=== PATIENT | female | born 1945 | race Caucasian/White ===

== ENCOUNTER 2017-10-04 06:17 | Day surgery (SDC) | payer OTHER ==
[~2017-10-04] VITALS: Ht 170.2 cm; Wt 95.8 kg
[~2017-10-04 06:17] MED LIST: AMIT50 PO; Aspirin EC81 MG; CEPACOL SORE T1 EACH MM; CEPH500 PO; CIPR500 PO; CLIN300 PO; Coumadin7.5 MG PO; DOCU100 PO; ELIQUIS5 MG PO; ENOX100I SC; EXEN10PI SC; FURO20 PO; GABA300 PO; GLIP10 PO; HYDR1TAB94 PO; INSUASPI SC; INSULANPEN SC; Janumet 50-1,01 EACH PO; LEVEMIR FL100 UNIT/1 SQ; LOPE2C PO; LORA.5 PO; MAGOXI400 PO; METF500 PO; METR500 PO; Micro-K10 MEQ; NYST100P TOP; PSEU120ER PO; SACC250C PO; WARF5 PO; WOMEN'S DAILY1 EAC1 PO
[2017-10-04] MEDS ORDERED: ELIQUIS5 MG (07:28)
== END 2017-10-04 08:21 | disposition home or self-care (01) ==
LOC: ORSCSDS 06:17
PROVIDERS: Surgery
PROC: 0DJD8ZZ Inspection of Lower Intestinal Tract, Via Natural or Artificial Opening Endoscopic (ICD-10-PCS; principal; 2017-10-04 07:30)
DX: K62.5 Hemorrhage of anus and rectum (principal); Z85.048 Personal history of other malignant neoplasm of rectum, rectosigmoid junction, and anus; E11.9 Type 2 diabetes mellitus without complications; F41.9 Anxiety disorder, unspecified; Z87.891 Personal history of nicotine dependence; E66.9 Obesity, unspecified; Z68.32 Body mass index [BMI] 32.0-32.9, adult; Z79.01 Long term (current) use of anticoagulants; Z79.84 Long term (current) use of oral hypoglycemic drugs; Z79.4 Long term (current) use of insulin; Z79.899 Other long term (current) drug therapy
CPT/HCPCS: 82947; J0330; J1980; J2405; J7120

== ENCOUNTER → 2017-10-09 | Outpatient (CLI) | payer OTHER ==
[~2017-10-09] MED LIST changes: +ELIQUIS5 MG
[2017-10-11 13:59] LABS: HPV Genotype 16 Not Detected (NOTDET); HPV Genotype 18 Not Detected (NOTDET)
[2017-10-16 14:51] LABS: HPV High Risk Other Not Detected (NOTDET)
== END | disposition home or self-care (01) ==
LOC: OLS 15:06
PROVIDERS: Nurse Practitioner Women's Health
DX: Z12.72 Encounter for screening for malignant neoplasm of vagina (principal); Z91.89 Other specified personal risk factors, not elsewhere classified
CPT/HCPCS: 87624; G0123

== ENCOUNTER 2018-03-10 07:52 | Emergency (ER) | payer OTHER ==
[~2018-03-10] VITALS: Ht 170.2 cm; Wt 101.6 kg
[2018-03-10] MEDS ORDERED: LOPE2C PO (08:34)
[2018-03-10 10:27] LABS: Source, Urine Catheter
[2018-03-10 10:38] LABS: Bilirubin, Urine Neg (Neg); Blood, Urine 5+ (Neg); Glucose Qualitative, Urine 4+ (Neg); Ketones, Urine Neg (Neg); Leukocyte Esterase, Urine Neg (Neg); Nitrite, Urine Neg (Neg); Protein, Urine Neg (Neg); Urobilinogen, Urine NORM (Normal)
[2018-03-10 10:48] LABS: Appearance, Urine Cloudy (Clear); Bacteria Rare /hpf; Color, Urine Other (P-Yellow); Red Blood Cells, Urine TNTC /hpf (0-2); Squamous Epithelial Cells Not Seen /hpf (Few); White Blood Cells, Urine Not Seen /hpf (0-5)
== END 2018-03-10 12:02 | disposition home or self-care (01) ==
LOC: ER 07:52
PROVIDERS: Emergency Medicine
DX: R31.9 Hematuria, unspecified (principal); C21.1 Malignant neoplasm of anal canal; K62.5 Hemorrhage of anus and rectum; R10.9 Unspecified abdominal pain; Z88.0 Allergy status to penicillin; Z88.8 Allergy status to other drugs, medicaments and biological substances; Z91.041 Radiographic dye allergy status; Z88.5 Allergy status to narcotic agent; Z79.899 Other long term (current) drug therapy; Z79.84 Long term (current) use of oral hypoglycemic drugs; Z79.4 Long term (current) use of insulin; E11.9 Type 2 diabetes mellitus without complications; Z87.891 Personal history of nicotine dependence
CPT/HCPCS: 74177; 81001; 99284; Q9967

== ENCOUNTER → 2018-10-17 | Outpatient (CLI) | payer OTHER ==
[~2018-10-17] MED LIST changes: +ESCI10 PO; +Furosemide20 MG PO; +INSULANPEN; +MAGNESIUM OXID400 M1 PO; +POTA10T PO
[2018-10-20 15:07] LABS: HPV 16 Negative (Negative); HPV 18 Negative (Negative); HPV OTHER HR TYPES Negative (Negative)
== END | disposition home or self-care (01) ==
LOC: LAB SHORT 13:28 → LAB 13:28
PROVIDERS: Nurse Practitioner Women's Health
DX: Z12.72 Encounter for screening for malignant neoplasm of vagina (principal); Z91.89 Other specified personal risk factors, not elsewhere classified
CPT/HCPCS: 87624; G0123

== ENCOUNTER → 2019-04-17 | Outpatient (CLI) | payer OTHER ==
[~2019-04-17] MED LIST changes: +Cholestyramine378 GM PO; -INSULANPEN; +LIRA0.6P SC; +Lexapro5 MG PO
[2019-04-20 14:48] LABS: Adenovirus F 40/41 Not Detected (NOT DETECT); Astrovirus Not Detected (NOT DETECT); Campylobacter Sp Not Detected (NOT DETECT); Cryptosporidium Not Detected (NOT DETECT); Cyclospora Cayetanensis Not Detected (NOT DETECT); E. Coli O157 Not Detected (NOT DETECT); Entamoeba Histolytica Not Detected (NOT DETECT); Enteroaggregative E. coli-EAEC Not Detected (NOT DETECT); Enteropathogenic E. coli-EPEC Not Detected (NOT DETECT); Enterotoxigenic E. coli-ETEC Not Detected (NOT DETECT); Giardia Lamblia Not Detected (NOT DETECT); Norovirus GI/GII Not Detected (NOT DETECT); Plesiomonas Shigelloides Not Detected (NOT DETECT); Rotavirus A Not Detected (NOT DETECT); Salmonella Sp Not Detected (NOT DETECT); Sapovirus Not Detected (NOT DETECT); Shiga Toxin-prod E. coli-STEC Not Detected (NOT DETECT); Shigella/Enteroin E. coli-EIEC Not Detected (NOT DETECT); Vibrio Cholerae Not Detected (NOT DETECT); Vibrio Sp Not Detected (NOT DETECT); Yersinia Enterocolitica Not Detected (NOT DETECT)
== END | disposition home or self-care (01) ==
LOC: LAB 15:15 → LAB SHORT 15:15 → LAB FUT 04-16 10:50
PROVIDERS: Internal Medicine
DX: R19.7 Diarrhea, unspecified (principal)
CPT/HCPCS: 0097U

== ENCOUNTER 2019-06-23 07:52 | Day surgery (SDC) | payer OTHER ==
[~2019-06-23] VITALS: Ht 180.3 cm; Wt 100.9 kg
== END 2019-06-23 09:48 | disposition home or self-care (01) ==
LOC: ORSCSDS 07:52
PROVIDERS: Surgery
PROC: 0DJD8ZZ Inspection of Lower Intestinal Tract, Via Natural or Artificial Opening Endoscopic (ICD-10-PCS; principal; 2019-06-23 09:15)
DX: Z85.048 Personal history of other malignant neoplasm of rectum, rectosigmoid junction, and anus (principal); E11.9 Type 2 diabetes mellitus without complications; I82.409 Acute embolism and thrombosis of unspecified deep veins of unspecified lower extremity; M79.7 Fibromyalgia; Z87.891 Personal history of nicotine dependence; E66.9 Obesity, unspecified; Z68.35 Body mass index [BMI] 35.0-35.9, adult; Z79.01 Long term (current) use of anticoagulants; Z79.4 Long term (current) use of insulin; Z79.899 Other long term (current) drug therapy
CPT/HCPCS: 82947; J2704; J7120

== ENCOUNTER 2019-09-19 19:34 | Emergency (ER) | payer OTHER ==
[~2019-09-19] VITALS: Ht 167.6 cm; Wt 98.0 kg
== END 2019-09-19 22:30 | disposition home or self-care (01) ==
LOC: ER 19:34
DX: S00.83XA Contusion of other part of head, initial encounter (principal); S80.01XA Contusion of right knee, initial encounter; E04.1 Nontoxic single thyroid nodule; E11.9 Type 2 diabetes mellitus without complications; Z88.0 Allergy status to penicillin; Z88.6 Allergy status to analgesic agent; Z91.09 Other allergy status, other than to drugs and biological substances; Z88.5 Allergy status to narcotic agent; Z79.899 Other long term (current) drug therapy; Z79.01 Long term (current) use of anticoagulants; Z79.4 Long term (current) use of insulin; Z87.891 Personal history of nicotine dependence; W22.8XXA Striking against or struck by other objects, initial encounter
CPT/HCPCS: 70450; 72125; 73564; 99284-25

== ENCOUNTER → 2020-06-11 | Outpatient (CLI) | payer OTHER ==
[~2020-06-11] MED LIST changes: +VICTOZA 3-0.6 MG/0.1 SC
[2020-06-11 17:45] LABS: BASOPHILS ABSOLUTE AUTO 0.09 K/mm3 (0.00-0.23); BASOPHILS PERCENT AUTO 1 % (0-2); EOSINOPHILS ABSOLUTE AUTO 0.25 K/mm3 (0.00-0.68); EOSINOPHILS PERCENT AUTO 2 % (0-6); Hemoglobin 11.5 g/dL (11.5-16.0); IMMATURE GRAN ABSOLUTE AUTO 0.04 K/mm3 (0.00-0.10); IMMATURE GRAN PERCENT AUTO 0 % (0-1); LYMPHOCYTES ABSOLUTE AUTO 1.39 K/mm3 (0.84-5.20); LYMPHOCYTES PERCENT AUTO 13 % (21-46); MONOCYTES ABSOLUTE AUTO 0.48 K/mm3 (0.16-1.47); MONOCYTES PERCENT AUTO 4 % (4-13); Mean Corpuscular HGB 29.3 pg (26.0-34.0); Mean Corpuscular HGB Conc 31.1 g/dL (31.5-36.5); Mean Corpuscular Volume 94 fL (80-100); Mean Platelet Volume 8.9 fL (9.1-12.4); NEUTROPHILS ABSOLUTE AUTO 8.75 K/mm3 (1.96-9.15); NEUTROPHILS PERCENT AUTO 80 % (41-73); Platelet Count 546 K/mm3 (150-400); RDW Coefficient Variation 13.5 % (11.7-14.2); RDW Standard Deviation 46.9 fL (35.1-46.3); Red Blood Cell Count 3.93 M/mm3 (3.80-5.20)
[2020-06-11 18:09] LABS: Alanine Aminotransfer (ALT/SGP 11 U/L (12-78); Albumin, Blood 3.1 g/dL (3.4-5.0); Albumin/Globulin Ratio 0.6 (0.8-1.8); Alk Phos 110 U/L (50-136); Anion Gap 7 mmol/L (6-16); Aspartate Aminotrans (AST/SGOT 7 U/L (12-37); Bilirubin, Total 0.3 mg/dL (0.1-1.0); Blood Urea Nitrogen 15 mg/dL (8-24); Bun/Creatinine Ratio 22.2 (12.0-20.0); CO2, Blood 26 mmol/L (21-32); Calcium, Blood 9.7 mg/dL (8.5-10.1); Chloride, Blood 107 mmol/L (98-108); Creatinine, Blood 0.68 mg/dL (0.40-1.00); Globulin, Blood 5.4 g/dL (2.2-4.0); Glomerular Filtration Rate >60 (60-); Glucose, Blood 187 mg/dL (70-99); Potassium, Blood 4.4 mmol/L (3.5-5.5); Sodium, Blood 140 mmol/L (136-145); Total Protein, Blood 8.5 g/dL (6.4-8.2)
== END | disposition home or self-care (01) ==
LOC: LAB 17:39 → LAB SHORT 17:39
PROVIDERS: Internal Medicine
DX: E11.40 Type 2 diabetes mellitus with diabetic neuropathy, unspecified (principal)
CPT/HCPCS: 80053; 83036; 84443; 85025

== ENCOUNTER → 2020-06-21 | Outpatient (CLI) | payer OTHER ==
[2020-06-21 18:16] LABS: Free Thyroxine 1.07 ng/dL (0.70-1.60); Thyroid Stimulating Hormone 4.78 uIU/mL (0.360-4.800); Triiodothyronine, Free 1.76 pg/mL (2.18-3.98)
== END | disposition home or self-care (01) ==
LOC: LAB SHORT 16:25 → LAB 16:25
PROVIDERS: Internal Medicine
DX: E03.9 Hypothyroidism, unspecified (principal)
CPT/HCPCS: 84439; 84443; 84481

== ENCOUNTER 2020-08-17 08:27 | Day surgery (SDC) | payer OTHER ==
[~2020-08-17] VITALS: Ht 170.2 cm; Wt 93.1 kg
[~2020-08-17 08:27] MED LIST changes: +BASAGLAR K100 UNIT/1 SC; +Hair, Skin & N1 EACH PO; -Lexapro5 MG PO; +MAGNESIUM GLU27.5 M1 PO; -MAGNESIUM OXID400 M1 PO; +MAGNESIUM OXID400 M2 PO; +METO25 PO; -VICTOZA 3-0.6 MG/0.1 SC; +VICTOZA 3-0.6 MG/0.2 SC; -WOMEN'S DAILY1 EAC1 PO
--- NOTE | 2020-08-17 09:23 | NUR ---
08/17/20 0923 Shirley Lloyd WHEN ASKED PT. IF SHE HAD ANY PAIN, PT. VERBALIZES HER RECTUM. PT. HAS HAD RECENT SURGERY FOR HER RECTUM BEING REMOVED. PT. VERBALIZES NOT REALLY PAIN, FEELS LIKE SOMEONE HIT HER.
== END 2020-08-17 10:45 | disposition home or self-care (01) ==
LOC: ORSCSDS 08:27
PROVIDERS: Internal Medicine Gastroenterology
PROC: 0D758ZZ Dilation of Esophagus, Via Natural or Artificial Opening Endoscopic (ICD-10-PCS; principal; 2020-08-17 09:30)
PROC: 0DB58ZX Excision of Esophagus, Via Natural or Artificial Opening Endoscopic, Diagnostic (ICD-10-PCS; principal; 2020-08-17 09:30)
PROC: 0DB78ZX Excision of Stomach, Pylorus, Via Natural or Artificial Opening Endoscopic, Diagnostic (ICD-10-PCS; principal; 2020-08-17 09:30)
DX: R13.14 Dysphagia, pharyngoesophageal phase (principal); K22.2 Esophageal obstruction; K21.9 Gastro-esophageal reflux disease without esophagitis; K22.0 Achalasia of cardia; K29.70 Gastritis, unspecified, without bleeding; E11.40 Type 2 diabetes mellitus with diabetic neuropathy, unspecified; Z87.891 Personal history of nicotine dependence; Z86.718 Personal history of other venous thrombosis and embolism; Z79.01 Long term (current) use of anticoagulants; Z79.84 Long term (current) use of oral hypoglycemic drugs; Z79.899 Other long term (current) drug therapy; E03.9 Hypothyroidism, unspecified; G47.33 Obstructive sleep apnea (adult) (pediatric); I10 Essential (primary) hypertension; Z79.4 Long term (current) use of insulin
CPT/HCPCS: 82947; 88305; 88312; C1726; J2704; J7120

== ENCOUNTER → 2020-09-27 | Outpatient (CLI) | payer OTHER ==
[2020-09-27 14:06] LABS: BASOPHILS ABSOLUTE AUTO 0.06 K/mm3 (0.00-0.23); BASOPHILS PERCENT AUTO 1 % (0-2); EOSINOPHILS ABSOLUTE AUTO 0.24 K/mm3 (0.00-0.68); EOSINOPHILS PERCENT AUTO 3 % (0-6); Hematocrit 38.9 % (33.0-51.0); Hemoglobin 11.8 g/dL (11.5-16.0); IMMATURE GRAN ABSOLUTE AUTO 0.02 K/mm3 (0.00-0.10); IMMATURE GRAN PERCENT AUTO 0 % (0-1); LYMPHOCYTES ABSOLUTE AUTO 0.82 K/mm3 (0.84-5.20); LYMPHOCYTES PERCENT AUTO 12 % (21-46); MONOCYTES ABSOLUTE AUTO 0.31 K/mm3 (0.16-1.47); MONOCYTES PERCENT AUTO 4 % (4-13); Mean Corpuscular HGB 28.7 pg (26.0-34.0); Mean Corpuscular HGB Conc 30.3 g/dL (31.5-36.5); Mean Corpuscular Volume 95 fL (80-100); Mean Platelet Volume 9.2 fL (9.1-12.4); NEUTROPHILS PERCENT AUTO 79 % (41-73); Platelet Count 363 K/mm3 (150-400); RDW Coefficient Variation 13.3 % (11.7-14.2); RDW Standard Deviation 46.7 fL (35.1-46.3); Red Blood Cell Count 4.11 M/mm3 (3.80-5.20); White Blood Cell Count 7.05 K/mm3 (4.00-11.30)
[2020-09-27 14:19] LABS: Percent Saturation 17.5 % (15.0-50.0)
[2020-09-27 14:29] LABS: Alanine Aminotransfer (ALT/SGP 15 U/L (12-78); Albumin, Blood 3.3 g/dL (3.4-5.0); Albumin/Globulin Ratio 0.8 (0.8-1.8); Alk Phos 84 U/L (50-136); Anion Gap 8 mmol/L (6-16); Aspartate Aminotrans (AST/SGOT 9 U/L (12-37); Bilirubin, Total 0.3 mg/dL (0.1-1.0); Blood Urea Nitrogen 21 mg/dL (8-24); Bun/Creatinine Ratio 29.2 (12.0-20.0); CO2, Blood 23 mmol/L (21-32); Calcium, Blood 9.3 mg/dL (8.5-10.1); Chloride, Blood 104 mmol/L (98-108); Creatinine, Blood 0.72 mg/dL (0.40-1.00); Glomerular Filtration Rate >60 (60-); Glucose, Blood 331 mg/dL (70-99); Potassium, Blood 4.3 mmol/L (3.5-5.5); Sodium, Blood 135 mmol/L (136-145); Total Protein, Blood 7.3 g/dL (6.4-8.2)
== END ==
LOC: LAB 10:45 → LAB SHORT 10:45
PROVIDERS: Internal Medicine Hematology & Oncology
DX: C21.1 Malignant neoplasm of anal canal (principal)
CPT/HCPCS: 80053; 82728; 83540; 83550; 85025

== ENCOUNTER 2021-04-09 12:03 | Emergency (ER) | payer OTHER ==
[~2021-04-09] VITALS: Ht 170.2 cm; Wt 96.6 kg
[2021-04-09 12:52] LABS: BASOPHILS ABSOLUTE AUTO 0.05 K/mm3 (0.00-0.23); BASOPHILS PERCENT AUTO 0 % (0-2); EOSINOPHILS ABSOLUTE AUTO 0.09 K/mm3 (0.00-0.68); EOSINOPHILS PERCENT AUTO 1 % (0-6); Hematocrit 41.1 % (33.0-51.0); Hemoglobin 13.5 g/dL (11.5-16.0); IMMATURE GRAN ABSOLUTE AUTO 0.04 K/mm3 (0.00-0.10); IMMATURE GRAN PERCENT AUTO 0 % (0-1); LYMPHOCYTES ABSOLUTE AUTO 0.74 K/mm3 (0.84-5.20); LYMPHOCYTES PERCENT AUTO 6 % (21-46); MONOCYTES ABSOLUTE AUTO 0.46 K/mm3 (0.16-1.47); MONOCYTES PERCENT AUTO 4 % (4-13); Mean Corpuscular HGB 31.9 pg (26.0-34.0); Mean Corpuscular HGB Conc 32.8 g/dL (31.5-36.5); Mean Corpuscular Volume 97 fL (80-100); Mean Platelet Volume 8.9 fL (9.1-12.4); NEUTROPHILS ABSOLUTE AUTO 10.62 K/mm3 (1.96-9.15); NEUTROPHILS PERCENT AUTO 89 % (41-73); Platelet Count 383 K/mm3 (150-400); RDW Coefficient Variation 12.1 % (11.7-14.2); RDW Standard Deviation 43.1 fL (35.1-46.3); Red Blood Cell Count 4.23 M/mm3 (3.80-5.20)
[2021-04-09 13:11] LABS: Alanine Aminotransfer (ALT/SGP 12 U/L (12-78); Albumin, Blood 3.2 g/dL (3.4-5.0); Albumin/Globulin Ratio 0.7 (0.8-1.8); Alk Phos 102 U/L (50-136); Anion Gap 8 mmol/L (6-16); Aspartate Aminotrans (AST/SGOT 11 U/L (12-37); Bilirubin, Total 0.6 mg/dL (0.1-1.0); Blood Urea Nitrogen 18 mg/dL (8-24); Bun/Creatinine Ratio 23.8 (12.0-20.0); CO2, Blood 24 mmol/L (21-32); Calcium, Blood 9.3 mg/dL (8.5-10.1); Chloride, Blood 102 mmol/L (98-108); Creatinine, Blood 0.76 mg/dL (0.40-1.00); Globulin, Blood 4.5 g/dL (2.2-4.0); Glomerular Filtration Rate >60 (60-); Glucose, Blood 371 mg/dL (70-99); Potassium, Blood 4.2 mmol/L (3.5-5.5); Sodium, Blood 134 mmol/L (136-145); Total Protein, Blood 7.7 g/dL (6.4-8.2)
== END 2021-04-09 15:50 | disposition home or self-care (01) ==
LOC: ER 12:03
PROVIDERS: Emergency Medicine
DX: K92.1 Melena (principal); T45.515A Adverse effect of anticoagulants, initial encounter; E11.9 Type 2 diabetes mellitus without complications; Z79.01 Long term (current) use of anticoagulants; Z79.899 Other long term (current) drug therapy; Z88.0 Allergy status to penicillin; Z91.041 Radiographic dye allergy status; Z88.5 Allergy status to narcotic agent; Z87.891 Personal history of nicotine dependence
CPT/HCPCS: 36415; 80053; 85025; 86850; 86900; 86901; 93005; 93010; 99284-25

== ENCOUNTER 2022-02-20 13:39 | Emergency (ER) | payer OTHER ==
[~2022-02-20] VITALS: Ht 165.1 cm; Wt 108.9 kg
== END 2022-02-20 16:20 | disposition home or self-care (01) ==
LOC: ER 13:39
DX: S00.83XA Contusion of other part of head, initial encounter (principal); S51.001A Unspecified open wound of right elbow, initial encounter; M25.562 Pain in left knee; M25.561 Pain in right knee; W01.198A Fall on same level from slipping, tripping and stumbling with subsequent striking against other object, initial encounter; E11.9 Type 2 diabetes mellitus without complications; Z79.01 Long term (current) use of anticoagulants; Z87.891 Personal history of nicotine dependence; Z79.899 Other long term (current) drug therapy; Z88.0 Allergy status to penicillin; Z88.5 Allergy status to narcotic agent; Z91.041 Radiographic dye allergy status; Z79.84 Long term (current) use of oral hypoglycemic drugs
CPT/HCPCS: 70450; 73070; 73560-LT; 73560-RT; A9270

== ENCOUNTER 2022-06-15 12:15 | Day surgery (SDC) | payer OTHER | END 2022-06-15 23:14 | disposition home or self-care (01) | LOC: WOUND 12:15 | DX: L89.153 Pressure ulcer of sacral region, stage 3 (principal); E11.622 Type 2 diabetes mellitus with other skin ulcer; L89.159 Pressure ulcer of sacral region, unspecified stage; L59.8 Other specified disorders of the skin and subcutaneous tissue related to radiation; Y84.2 Radiological procedure and radiotherapy as the cause of abnormal reaction of the patient, or of later complication, without mention of misadventure at the time of the procedure; Z88.0 Allergy status to penicillin; Z87.891 Personal history of nicotine dependence | CPT/HCPCS: A9270; G0463 ==

== ENCOUNTER 2022-06-29 02:36 | Day surgery (SDC) | payer OTHER | END 2022-06-29 23:27 | disposition home or self-care (01) | LOC: WOUND 02:36 | DX: L89.153 Pressure ulcer of sacral region, stage 3 (principal); L59.8 Other specified disorders of the skin and subcutaneous tissue related to radiation | CPT/HCPCS: A9270 ==

== ENCOUNTER 2022-07-06 00:57 | Day surgery (SDC) | payer OTHER | END 2022-07-06 23:11 | disposition home or self-care (01) | LOC: WOUND 00:57 | DX: L89.153 Pressure ulcer of sacral region, stage 3 (principal); E11.622 Type 2 diabetes mellitus with other skin ulcer; L59.8 Other specified disorders of the skin and subcutaneous tissue related to radiation; L98.499 Non-pressure chronic ulcer of skin of other sites with unspecified severity; Y84.2 Radiological procedure and radiotherapy as the cause of abnormal reaction of the patient, or of later complication, without mention of misadventure at the time of the procedure | CPT/HCPCS: A9270 ==

== ENCOUNTER 2022-07-13 01:48 | Day surgery (SDC) | payer OTHER | END 2022-07-13 23:03 | disposition home or self-care (01) | LOC: WOUND 01:48 | DX: L89.153 Pressure ulcer of sacral region, stage 3 (principal); E11.9 Type 2 diabetes mellitus without complications; L59.8 Other specified disorders of the skin and subcutaneous tissue related to radiation; R15.9 Full incontinence of feces; Y84.2 Radiological procedure and radiotherapy as the cause of abnormal reaction of the patient, or of later complication, without mention of misadventure at the time of the procedure | CPT/HCPCS: A9270 ==

== ENCOUNTER 2022-07-19 03:52 | Day surgery (SDC) | payer OTHER | END 2022-07-19 22:46 | disposition home or self-care (01) | LOC: WOUND 03:52 | DX: L89.153 Pressure ulcer of sacral region, stage 3 (principal); E11.622 Type 2 diabetes mellitus with other skin ulcer; L59.8 Other specified disorders of the skin and subcutaneous tissue related to radiation | CPT/HCPCS: A9270 ==

== ENCOUNTER 2022-08-03 00:32 | Day surgery (SDC) | payer OTHER | END 2022-08-03 22:45 | disposition home or self-care (01) | LOC: WOUND 00:32 | DX: L89.153 Pressure ulcer of sacral region, stage 3 (principal); L59.8 Other specified disorders of the skin and subcutaneous tissue related to radiation | CPT/HCPCS: A9270 ==

== ENCOUNTER → 2022-08-07 | Outpatient (CLI) | payer OTHER | END | disposition home or self-care (01) | DX: E11.69 Type 2 diabetes mellitus with other specified complication (principal); E03.9 Hypothyroidism, unspecified; I10 Essential (primary) hypertension ==

== ENCOUNTER 2022-09-27 01:01 | Day surgery (SDC) | payer OTHER | END 2022-09-27 22:36 | disposition home or self-care (01) | LOC: WOUND 01:01 | DX: L89.153 Pressure ulcer of sacral region, stage 3 (principal); E11.622 Type 2 diabetes mellitus with other skin ulcer; L59.8 Other specified disorders of the skin and subcutaneous tissue related to radiation; Y84.2 Radiological procedure and radiotherapy as the cause of abnormal reaction of the patient, or of later complication, without mention of misadventure at the time of the procedure | CPT/HCPCS: A9270; G0463 ==

== ENCOUNTER 2022-10-04 11:39 | Emergency (ER) | payer OTHER ==
[~2022-10-04] VITALS: Ht 167.6 cm; Wt 90.3 kg
[2022-10-04 12:35] LABS: BASOPHILS ABSOLUTE AUTO 0.05 K/mm3 (0.00-0.23); BASOPHILS PERCENT AUTO 1 % (0-2); EOSINOPHILS ABSOLUTE AUTO 0.13 K/mm3 (0.00-0.68); EOSINOPHILS PERCENT AUTO 2 % (0-6); Hematocrit 38.8 % (33.0-51.0); Hemoglobin 12.7 g/dL (11.5-16.0); IMMATURE GRAN ABSOLUTE AUTO 0.01 K/mm3 (0.00-0.10); IMMATURE GRAN PERCENT AUTO 0 % (0-1); LYMPHOCYTES ABSOLUTE AUTO 1.19 K/mm3 (0.84-5.20); LYMPHOCYTES PERCENT AUTO 17 % (21-46); MONOCYTES ABSOLUTE AUTO 0.29 K/mm3 (0.16-1.47); MONOCYTES PERCENT AUTO 4 % (4-13); Mean Corpuscular HGB 31.1 pg (26.0-34.0); Mean Corpuscular HGB Conc 32.7 g/dL (31.5-36.5); Mean Corpuscular Volume 95 fL (80-100); Mean Platelet Volume 8.9 fL (9.1-12.4); NEUTROPHILS ABSOLUTE AUTO 5.33 K/mm3 (1.96-9.15); NEUTROPHILS PERCENT AUTO 76 % (41-73); Platelet Count 376 K/mm3 (150-400); RDW Coefficient Variation 13.2 % (11.7-14.2); RDW Standard Deviation 46.2 fL (35.1-46.3); Red Blood Cell Count 4.08 M/mm3 (3.80-5.20)
[2022-10-04 13:10] LABS: International Normalized Ratio 0.99; Prothrombin Time Results 10.4 Sec (9.7-11.5)
[2022-10-04 13:35] LABS: Albumin, Blood 3.4 g/dL (3.4-5.0); Albumin/Globulin Ratio 0.9 (0.8-1.8); Bilirubin, Total 0.3 mg/dL (0.1-1.0); Bun/Creatinine Ratio 16.6 (12.0-20.0); Calcium, Blood 9.1 mg/dL (8.5-10.1); Creatinine, Blood 0.96 mg/dL (0.40-1.00); Globulin, Blood 3.9 g/dL (2.2-4.0); Potassium, Blood 4.2 mmol/L (3.5-5.5); Total Protein, Blood 7.3 g/dL (6.4-8.2)
[2022-10-04] MEDS ORDERED: OXYB5 PO (14:24)
[2022-10-04] MEDS ORDERED: BASAGLAR K100 UNIT/3 SC (14:26)
== END 2022-10-04 16:02 | disposition home or self-care (01) ==
LOC: ER 11:39
PROVIDERS: Physician Assistant
DX: R07.9 Chest pain, unspecified (principal); E11.9 Type 2 diabetes mellitus without complications; Z87.891 Personal history of nicotine dependence; Z88.8 Allergy status to other drugs, medicaments and biological substances; Z88.0 Allergy status to penicillin; Z88.5 Allergy status to narcotic agent; Z79.899 Other long term (current) drug therapy; Z79.01 Long term (current) use of anticoagulants; Z79.4 Long term (current) use of insulin
CPT/HCPCS: 36415; 71046; 80053; 83690; 84484; 85025; 85610

== ENCOUNTER 2022-10-11 02:53 | Day surgery (SDC) | payer OTHER ==
[~2022-10-11 02:53] MED LIST changes: +BASAGLAR K100 UNIT/3 SC; +OXYB5 PO
== END 2022-10-11 23:03 | disposition home or self-care (01) ==
LOC: WOUND 02:53
DX: L89.153 Pressure ulcer of sacral region, stage 3 (principal); E11.622 Type 2 diabetes mellitus with other skin ulcer; L59.8 Other specified disorders of the skin and subcutaneous tissue related to radiation; Y84.2 Radiological procedure and radiotherapy as the cause of abnormal reaction of the patient, or of later complication, without mention of misadventure at the time of the procedure
CPT/HCPCS: A9270; G0463

== ENCOUNTER 2022-10-18 03:33 | Day surgery (SDC) | payer OTHER | END 2022-10-18 23:10 | disposition home or self-care (01) | LOC: WOUND 03:33 | DX: L89.153 Pressure ulcer of sacral region, stage 3 (principal); E11.622 Type 2 diabetes mellitus with other skin ulcer; L59.8 Other specified disorders of the skin and subcutaneous tissue related to radiation; Y84.2 Radiological procedure and radiotherapy as the cause of abnormal reaction of the patient, or of later complication, without mention of misadventure at the time of the procedure | CPT/HCPCS: A9270 ==

== ENCOUNTER 2022-10-25 02:27 | Day surgery (SDC) | payer OTHER | END 2022-10-25 22:45 | disposition home or self-care (01) | LOC: WOUND 02:27 | DX: L89.153 Pressure ulcer of sacral region, stage 3 (principal); L59.8 Other specified disorders of the skin and subcutaneous tissue related to radiation; E11.622 Type 2 diabetes mellitus with other skin ulcer; Y84.2 Radiological procedure and radiotherapy as the cause of abnormal reaction of the patient, or of later complication, without mention of misadventure at the time of the procedure | CPT/HCPCS: A9270 ==

== ENCOUNTER 2022-11-01 03:43 | Day surgery (SDC) | payer OTHER | END 2022-11-01 22:37 | disposition home or self-care (01) | LOC: WOUND 03:43 | DX: E11.622 Type 2 diabetes mellitus with other skin ulcer (principal); L89.153 Pressure ulcer of sacral region, stage 3; L59.8 Other specified disorders of the skin and subcutaneous tissue related to radiation; Y84.2 Radiological procedure and radiotherapy as the cause of abnormal reaction of the patient, or of later complication, without mention of misadventure at the time of the procedure | CPT/HCPCS: A9270; G0463 ==

== ENCOUNTER 2022-11-15 01:48 | Day surgery (SDC) | payer OTHER | END 2022-11-15 22:45 | disposition home or self-care (01) | LOC: WOUND 01:48 | DX: L89.153 Pressure ulcer of sacral region, stage 3 (principal); E11.622 Type 2 diabetes mellitus with other skin ulcer; Y84.2 Radiological procedure and radiotherapy as the cause of abnormal reaction of the patient, or of later complication, without mention of misadventure at the time of the procedure; L59.8 Other specified disorders of the skin and subcutaneous tissue related to radiation | CPT/HCPCS: A9270 ==

== ENCOUNTER 2022-11-22 00:46 | Day surgery (SDC) | payer OTHER | END 2022-11-22 22:34 | disposition home or self-care (01) | LOC: WOUND 00:46 | DX: L89.153 Pressure ulcer of sacral region, stage 3 (principal); M87.38 Other secondary osteonecrosis, other site; C21.0 Malignant neoplasm of anus, unspecified; Y84.2 Radiological procedure and radiotherapy as the cause of abnormal reaction of the patient, or of later complication, without mention of misadventure at the time of the procedure | CPT/HCPCS: A9270 ==

== ENCOUNTER 2022-11-29 02:23 | Day surgery (SDC) | payer OTHER | END 2022-11-29 22:34 | disposition home or self-care (01) | LOC: WOUND 02:23 | DX: L89.153 Pressure ulcer of sacral region, stage 3 (principal); E11.622 Type 2 diabetes mellitus with other skin ulcer; Y84.2 Radiological procedure and radiotherapy as the cause of abnormal reaction of the patient, or of later complication, without mention of misadventure at the time of the procedure; L59.8 Other specified disorders of the skin and subcutaneous tissue related to radiation | CPT/HCPCS: G0463 ==

== ENCOUNTER 2022-12-06 02:19 | Day surgery (SDC) | payer OTHER | END 2022-12-06 22:36 | disposition home or self-care (01) | LOC: WOUND 02:19 | DX: L89.153 Pressure ulcer of sacral region, stage 3 (principal); E11.9 Type 2 diabetes mellitus without complications; Y84.2 Radiological procedure and radiotherapy as the cause of abnormal reaction of the patient, or of later complication, without mention of misadventure at the time of the procedure; L59.8 Other specified disorders of the skin and subcutaneous tissue related to radiation | CPT/HCPCS: A9270 ==

== ENCOUNTER 2022-12-20 02:04 | Day surgery (SDC) | payer OTHER | END 2022-12-20 22:46 | disposition home or self-care (01) | LOC: WOUND 02:04 | DX: L89.153 Pressure ulcer of sacral region, stage 3 (principal); E11.9 Type 2 diabetes mellitus without complications; L59.8 Other specified disorders of the skin and subcutaneous tissue related to radiation; Y84.2 Radiological procedure and radiotherapy as the cause of abnormal reaction of the patient, or of later complication, without mention of misadventure at the time of the procedure | CPT/HCPCS: G0463 ==

== ENCOUNTER 2023-01-03 01:03 | Day surgery (SDC) | payer OTHER | END 2023-01-03 22:36 | disposition home or self-care (01) | LOC: WOUND 01:03 | DX: L89.153 Pressure ulcer of sacral region, stage 3 (principal); E11.622 Type 2 diabetes mellitus with other skin ulcer; Y84.2 Radiological procedure and radiotherapy as the cause of abnormal reaction of the patient, or of later complication, without mention of misadventure at the time of the procedure; L59.8 Other specified disorders of the skin and subcutaneous tissue related to radiation | CPT/HCPCS: G0463 ==

== ENCOUNTER 2023-01-17 01:31 | Day surgery (SDC) | payer OTHER | END 2023-01-17 22:49 | disposition home or self-care (01) | LOC: WOUND 01:31 | DX: L89.153 Pressure ulcer of sacral region, stage 3 (principal); E11.622 Type 2 diabetes mellitus with other skin ulcer; Y84.2 Radiological procedure and radiotherapy as the cause of abnormal reaction of the patient, or of later complication, without mention of misadventure at the time of the procedure; L59.8 Other specified disorders of the skin and subcutaneous tissue related to radiation | CPT/HCPCS: A9270; G0463 ==

== ENCOUNTER 2023-01-31 03:48 | Day surgery (SDC) | payer OTHER | END 2023-01-31 22:35 | disposition home or self-care (01) | LOC: WOUND 03:48 | DX: L89.153 Pressure ulcer of sacral region, stage 3 (principal); E11.622 Type 2 diabetes mellitus with other skin ulcer; L59.8 Other specified disorders of the skin and subcutaneous tissue related to radiation; Y84.2 Radiological procedure and radiotherapy as the cause of abnormal reaction of the patient, or of later complication, without mention of misadventure at the time of the procedure | CPT/HCPCS: A9270; G0463 ==

== ENCOUNTER 2023-02-27 03:12 | Day surgery (SDC) | payer OTHER | END 2023-02-27 22:48 | disposition home or self-care (01) | LOC: WOUND 03:12 → EDSTATUS 16:16 → WOUND 16:18 | DX: L89.153 Pressure ulcer of sacral region, stage 3 (principal); E11.622 Type 2 diabetes mellitus with other skin ulcer; L59.8 Other specified disorders of the skin and subcutaneous tissue related to radiation; Y84.2 Radiological procedure and radiotherapy as the cause of abnormal reaction of the patient, or of later complication, without mention of misadventure at the time of the procedure | CPT/HCPCS: G0463 ==

== ENCOUNTER 2023-03-15 06:42 | Day surgery (SDC) | payer OTHER ==
[~2023-03-15] VITALS: Ht 167.6 cm; Wt 91.0 kg
[~2023-03-15 06:42] MED LIST changes: +SULTRIDS PO
[2023-03-15 07:10] VITALS: BP 113/64
[2023-03-15 08:45] VITALS: BP 152/84
--- NOTE | 2023-03-15 08:54 | NUR ---
PT TO RECOVER ROOM, AFTER PROCEDURE PT REPORTED HAVING DIFFICULTY BREATHING, LS CRACKLES T/O SPO2 REQUIREMENT INCREASED, PLACED ON NRB AT 15L, DR. CHANDLER NOTIFIED AND TO BEDSIDE TO EVAL. 20MG IV LASIX ADMIN PER ORDER. AFTER 10 MIN PT. O2 TITRATED DOWN TO OXYMIZER, AND PT REPORTED WOB IMPROVING. AFTER 15 MIN PT. SPO2 TITRATED BACK TO 2LNC.
[2023-03-15 09:00] VITALS: BP 134/78
--- NOTE | 2023-03-15 09:27 | NUR ---
PT SITTING UP IN BED EATING BREAKFAST, UP TO BEDSIDE COMMODE WITH ASSISTANCE TO VOID, AFTER ACTIVITY PT BECAME SOB AGAIN AND REQUIRED APPROX 10 MIN TO RECOVER BACK TO BASELINE. PUREWICK AT BEDSIDE IF PT NEEDS TO VOID AGAIN.
--- NOTE | 2023-03-15 10:15 | NUR ---
TR BAND DELFATED, TEGADERM PLACED OVER SITE, NO SWELLING, NO HEMATOMA. PT EDUCATION PROVIDED. PT CONTINUE WITH ARM BOARD IN PLACE.
--- NOTE | 2023-03-15 12:10 | NUR ---
dishcarge instructions reviewed in detail with pt and s/o Syed. Pt has tr band removed, site remains wnl, no hematoma, no swelling. currently on room air, denies any dyspnea.
== END 2023-03-15 13:03 | disposition home or self-care (01) ==
LOC: MHTC 06:42
DX: I25.10 Atherosclerotic heart disease of native coronary artery without angina pectoris (principal); I70.0 Atherosclerosis of aorta; I50.32 Chronic diastolic (congestive) heart failure; I35.0 Nonrheumatic aortic (valve) stenosis; E78.5 Hyperlipidemia, unspecified; E66.9 Obesity, unspecified; R09.89 Other specified symptoms and signs involving the circulatory and respiratory systems; E11.9 Type 2 diabetes mellitus without complications; Z87.891 Personal history of nicotine dependence; Z79.01 Long term (current) use of anticoagulants; Z88.6 Allergy status to analgesic agent; Z88.0 Allergy status to penicillin; Z88.8 Allergy status to other drugs, medicaments and biological substances
CPT/HCPCS: 76937; 82947; 93454; 99152; 99153; C1769; C1887; C1894; J1200; J1644; J1720; J1940; J2250; J3010; J7030; J7050; Q9967

== ENCOUNTER → 2023-03-21 | Outpatient (CLI) | payer OTHER ==
[2023-03-21 12:52] LABS: BASOPHILS ABSOLUTE AUTO 0.06 K/mm3 (0.00-0.23); BASOPHILS PERCENT AUTO 1 % (0-2); EOSINOPHILS ABSOLUTE AUTO 0.15 K/mm3 (0.00-0.68); EOSINOPHILS PERCENT AUTO 2 % (0-6); Hematocrit 39.2 % (33.0-51.0); Hemoglobin 12.4 g/dL (11.5-16.0); IMMATURE GRAN ABSOLUTE AUTO 0.03 K/mm3 (0.00-0.10); IMMATURE GRAN PERCENT AUTO 0 % (0-1); LYMPHOCYTES PERCENT AUTO 9 % (21-46); MONOCYTES ABSOLUTE AUTO 0.39 K/mm3 (0.16-1.47); MONOCYTES PERCENT AUTO 4 % (4-13); Mean Corpuscular HGB Conc 31.6 g/dL (31.5-36.5); Mean Corpuscular Volume 95 fL (80-100); Mean Platelet Volume 10.1 fL (9.1-12.4); NEUTROPHILS ABSOLUTE AUTO 7.44 K/mm3 (1.96-9.15); NEUTROPHILS PERCENT AUTO 84 % (41-73); Platelet Count 340 K/mm3 (150-400); RDW Coefficient Variation 14.6 % (11.7-14.2); RDW Standard Deviation 50.7 fL (35.1-46.3); Red Blood Cell Count 4.13 M/mm3 (3.80-5.20); White Blood Cell Count 8.87 K/mm3 (4.00-11.30)
[2023-03-21 14:10] LABS: Albumin, Blood 3.3 g/dL (3.4-5.0); Albumin/Globulin Ratio 0.9 (0.8-1.8); Aspartate Aminotrans (AST/SGOT 12 U/L (12-37); Bilirubin, Total 0.4 mg/dL (0.1-1.0); Blood Urea Nitrogen 18 mg/dL (8-24); Chloride, Blood 107 mmol/L (98-108); Globulin, Blood 3.7 g/dL (2.2-4.0); Glucose, Blood 204 mg/dL (70-99); Sodium, Blood 140 mmol/L (136-145)
[2023-03-21 14:21] LABS: Alanine Aminotransfer (ALT/SGP 11 U/L (12-78); Alk Phos 69 U/L (50-136); Anion Gap 9 mmol/L (6-16); Bun/Creatinine Ratio 19.7 (12.0-20.0); CHOL/HDL RATIO 4.1; CO2, Blood 24 mmol/L (21-32); Calcium, Blood 9.4 mg/dL (8.5-10.1); Cholesterol 177 mg/dL (50-200); Creatinine, Blood 0.91 mg/dL (0.40-1.00); Glomerular Filtration Rate 65 (60-); HDL Cholesterol 43 mg/dL (>39); LDL/HDL RATIO 2.3; Low Density Lipoprotein Chol 99 mg/dL (0-110); Triglycerides 175 mg/dL (30-160); Very Low Density Lipoprot Chol 35 mg/dL (6-32)
== END ==
LOC: LAB SHORT 08:15 → LAB 08:15
PROVIDERS: Internal Medicine
DX: E03.9 Hypothyroidism, unspecified (principal); E11.69 Type 2 diabetes mellitus with other specified complication; E78.5 Hyperlipidemia, unspecified; I10 Essential (primary) hypertension
CPT/HCPCS: 80053; 80061; 83036; 83880; 84443; 85025

== ENCOUNTER 2023-03-27 01:57 | Day surgery (SDC) | payer OTHER | END 2023-03-27 22:45 | disposition home or self-care (01) | LOC: WOUND 01:57 | DX: L89.153 Pressure ulcer of sacral region, stage 3 (principal); L59.8 Other specified disorders of the skin and subcutaneous tissue related to radiation; Y84.2 Radiological procedure and radiotherapy as the cause of abnormal reaction of the patient, or of later complication, without mention of misadventure at the time of the procedure; L89.302 Pressure ulcer of unspecified buttock, stage 2; E11.622 Type 2 diabetes mellitus with other skin ulcer | CPT/HCPCS: G0463 ==

== ENCOUNTER 2023-04-03 04:06 | Day surgery (SDC) | payer OTHER | END 2023-04-03 22:45 | disposition home or self-care (01) | LOC: WOUND 04:06 | DX: L89.153 Pressure ulcer of sacral region, stage 3 (principal); E11.622 Type 2 diabetes mellitus with other skin ulcer; Y84.2 Radiological procedure and radiotherapy as the cause of abnormal reaction of the patient, or of later complication, without mention of misadventure at the time of the procedure; L59.8 Other specified disorders of the skin and subcutaneous tissue related to radiation | CPT/HCPCS: 80048; 83880; G0463 ==

== ENCOUNTER 2023-04-10 01:21 | Day surgery (SDC) | payer OTHER | END 2023-04-10 23:10 | disposition home or self-care (01) | LOC: WOUND 01:21 | DX: L89.153 Pressure ulcer of sacral region, stage 3 (principal); E11.622 Type 2 diabetes mellitus with other skin ulcer; Y84.2 Radiological procedure and radiotherapy as the cause of abnormal reaction of the patient, or of later complication, without mention of misadventure at the time of the procedure; L59.8 Other specified disorders of the skin and subcutaneous tissue related to radiation | CPT/HCPCS: G0463 ==

== ENCOUNTER → 2023-04-10 | Outpatient (CLI) | payer OTHER ==
[2023-04-10 12:26] LABS: Bun/Creatinine Ratio 22.7 (12.0-20.0); Creatinine, Blood 0.88 mg/dL (0.40-1.00); Potassium, Blood 3.4 mmol/L (3.5-5.5)
== END | disposition home or self-care (01) ==
LOC: LAB 08:20 → LAB SHORT 08:20
PROVIDERS: Internal Medicine
DX: I48.91 Unspecified atrial fibrillation (principal)
CPT/HCPCS: 80048; 83880

== ENCOUNTER 2023-04-18 02:35 | Day surgery (SDC) | payer OTHER | END 2023-04-18 23:32 | disposition home or self-care (01) | LOC: WOUND 02:35 | DX: L89.153 Pressure ulcer of sacral region, stage 3 (principal); E11.622 Type 2 diabetes mellitus with other skin ulcer; L59.8 Other specified disorders of the skin and subcutaneous tissue related to radiation; Y84.2 Radiological procedure and radiotherapy as the cause of abnormal reaction of the patient, or of later complication, without mention of misadventure at the time of the procedure | CPT/HCPCS: A9270; G0463 ==

== ENCOUNTER 2023-04-24 02:22 | Day surgery (SDC) | payer OTHER | END 2023-04-24 22:43 | disposition home or self-care (01) | LOC: WOUND 02:22 | DX: L89.153 Pressure ulcer of sacral region, stage 3 (principal); M87.38 Other secondary osteonecrosis, other site; E11.622 Type 2 diabetes mellitus with other skin ulcer; Y84.2 Radiological procedure and radiotherapy as the cause of abnormal reaction of the patient, or of later complication, without mention of misadventure at the time of the procedure; L59.8 Other specified disorders of the skin and subcutaneous tissue related to radiation | CPT/HCPCS: G0463 ==

== ENCOUNTER → 2023-04-24 | Outpatient (CLI) | payer OTHER ==
[2023-04-24 15:43] LABS: Bun/Creatinine Ratio 29.9 (12.0-20.0); Calcium, Blood 9.2 mg/dL (8.5-10.1); Creatinine, Blood 1.74 mg/dL (0.40-1.00); Potassium, Blood 5.3 mmol/L (3.5-5.5)
== END | disposition home or self-care (01) ==
LOC: LAB 11:15 → LAB SHORT 11:15
PROVIDERS: Internal Medicine
DX: I48.91 Unspecified atrial fibrillation (principal); I35.0 Nonrheumatic aortic (valve) stenosis
CPT/HCPCS: 80048; 83880

== ENCOUNTER 2023-04-25 09:19 | Inpatient (IN) | payer OTHER ==
[~2023-04-25] VITALS: Ht 167.6 cm; Wt 86.0 kg
[2023-04-25 10:46] LABS: BASOPHILS ABSOLUTE AUTO 0.07 K/mm3 (0.00-0.23); BASOPHILS PERCENT AUTO 0 % (0-2); EOSINOPHILS ABSOLUTE AUTO 0.01 K/mm3 (0.00-0.68); EOSINOPHILS PERCENT AUTO 0 % (0-6); Hemoglobin 12.5 g/dL (11.5-16.0); IMMATURE GRAN ABSOLUTE AUTO 0.09 K/mm3 (0.00-0.10); IMMATURE GRAN PERCENT AUTO 1 % (0-1); LYMPHOCYTES PERCENT AUTO 3 % (21-46); MONOCYTES ABSOLUTE AUTO 0.72 K/mm3 (0.16-1.47); MONOCYTES PERCENT AUTO 5 % (4-13); Mean Corpuscular HGB Conc 30.5 g/dL (31.5-36.5); Mean Corpuscular Volume 99 fL (80-100); Mean Platelet Volume 10.1 fL (9.1-12.4); NEUTROPHILS ABSOLUTE AUTO 14.52 K/mm3 (1.96-9.15); NEUTROPHILS PERCENT AUTO 92 % (41-73); Platelet Count 271 K/mm3 (150-400); RDW Coefficient Variation 13.6 % (11.7-14.2); RDW Standard Deviation 48.9 fL (35.1-46.3); Red Blood Cell Count 4.16 M/mm3 (3.80-5.20); White Blood Cell Count 15.81 K/mm3 (4.00-11.30)
[2023-04-25 11:01] LABS: Bun/Creatinine Ratio 28.7 (12.0-20.0); Calcium, Blood 9.2 mg/dL (8.5-10.1); Creatinine, Blood 1.5 mg/dL (0.40-1.00); Potassium, Blood 5.3 mmol/L (3.5-5.5)
[2023-04-25 11:52] LABS: Base Excess Venous -6.4 mmol/L; Bicarbonate Venous 19.9 mmol/L (24.0-30.0); PCO2 Venous 33.1 mmHg (38-42); pH Blood Venous 7.37 (7.34-7.37)
[2023-04-25 12:17] LABS: Source, Urine Clean Catch
[2023-04-25 12:34] LABS: Appearance, Urine Cloudy (Clear); Bilirubin, Urine Neg (Neg); Blood, Urine 4+ (Neg); Color, Urine Yellow (P-Yellow); Glucose Qualitative, Urine 4+ (Neg); Ketones, Urine 2+ (Neg); Leukocyte Esterase, Urine 3+ (Neg); Nitrite, Urine Neg (Neg); Protein, Urine 3+ (Neg); Urobilinogen, Urine NORM (Normal)
[2023-04-25 13:18] LABS: Bacteria Many /hpf; Red Blood Cells, Urine TNTC /hpf (0-2); Squamous Epithelial Cells Rare /hpf (Few); White Blood Cells, Urine TNTC /hpf (0-5)
[2023-04-25 16:18] VITALS: BP 116/80
[2023-04-25 20:25] VITALS: BP 105/74
[2023-04-25 23:03] VITALS: BP 100/76
[2023-04-26 03:49] VITALS: BP 97/71
[2023-04-26 04:19] LABS: Hematocrit 34.1 % (33.0-51.0); Hemoglobin 10.8 g/dL (11.5-16.0); Mean Corpuscular HGB 29.3 pg (26.0-34.0); Mean Corpuscular HGB Conc 31.7 g/dL (31.5-36.5); Mean Platelet Volume 10.1 fL (9.1-12.4); Platelet Count 335 K/mm3 (150-400); RDW Standard Deviation 46.5 fL (35.1-46.3); Red Blood Cell Count 3.68 M/mm3 (3.80-5.20)
[2023-04-26 04:24] LABS: Mean Corpuscular Volume 93 fL (80-100)
[2023-04-26 04:46] LABS: BAND PERCENT MAN 14 % (0-8); BASOPHILS PERCENT MAN 0 % (0-2); EOSINOPHILS PERCENT MAN 0 % (0-6); LYMPHOCYTES ABSOLUTE MAN 0.41 K/mm3 (0.84-5.20); LYMPHOCYTES PERCENT MAN 2 % (21-46); MONOCYTES ABSOLUTE MAN 1.03 K/mm3 (0.16-1.47); MONOCYTES PERCENT MAN 5 % (4-13); NEUTROPHILS ABSOLUTE MAN 19.15 K/mm3 (1.96-9.15); SEG NEUTROPHILS PERCENT MAN 79 % (41-73); TOTAL CELLS COUNTED 100
--- NOTE | 2023-04-26 04:54 | NUR ---
SHIFT SUMMARY NO ACUTE CHANGES THIS SHIFT. AXO4. VSS. SWELLING REMAINS UNCHANGED TO R THROAT. BREATHING REMAINS WITHOUT STRIDOR, TIGHTNESS, WHEEZING, OR ANY OTHER S/SX RESP DISTRESS. PAIN CONTINUES, MEDS PER EMAR. PT NPO UNTIL SPEECH EVAL TODAY. PICTURES TAKEN OF SACRAL WOUND FOR CHART, WOUND CLEANSED, MEPILEX REPLACED. CBG ELEVATED AT BEGINNING OF SHIFT, LONG ACTING INSULIN ADMINISTERED, PT NPO, AWAITING AM LABS TO DETERMINE IF MORE INSULIN WILL NEED TO BE GIVEN. COLOSTOMY PATENT. [employer] SYSTEM PATENT, ALL EQUIPMENT CHANGED OUT. BED ALARM ON. CALL LIGHT WITHIN REACH.
[2023-04-26 06:37] LABS: Bun/Creatinine Ratio 29.5 (12.0-20.0); Calcium, Blood 8.7 mg/dL (8.5-10.1); Creatinine, Blood 1.46 mg/dL (0.40-1.00); Potassium, Blood 4.8 mmol/L (3.5-5.5)
[2023-04-26 08:33] VITALS: BP 98/69
[2023-04-26 11:05] VITALS: BP 96/72
--- NOTE | 2023-04-26 13:40 | NUR ---
"Spiritual Care Attempt | Pt. request Pt. is resting in her bed but responded when I entered the room. The Pt. verbalized gratitude for the spiritual care visit be requested this lead manufacturing engineering tech return at a different time. Pt. displayed evidence of somnolence. Pt. again graciously verbalized gratitude for the spiritual care visit. Will remain available to the Pt."
[2023-04-26 15:21] VITALS: BP 96/66
[2023-04-26 15:31] LABS: Bun/Creatinine Ratio 31.1 (12.0-20.0); Creatinine, Blood 1.48 mg/dL (0.40-1.00); Potassium, Blood 5.1 mmol/L (3.5-5.5)
--- NOTE | 2023-04-26 17:13 | NUR ---
shift summary No acute changes this shift. pt a&ox4. sp02>90% on ra. telemetry shows sinus tach, mostly 110's. purwik to lis. no bm this shift. pt c/o of mouth pain, medicated per emar. c/o of neuropathic foot pain, gabapentin given per emar. speech in room to eval this am, puree diet, meds in applesauce. Hygenist in room to assess this am. Lab called w/ positive blood cultures, pharmacy and md notified. daughter in room this shift. Partner in room this shift. partner this evening brought home med rec in, med rec completed. abx infused per emar. repositioned q2h. call light in reach.
[2023-04-26 20:00] VITALS: BP 90/67
[2023-04-27] VITALS: BP 92/65
[2023-04-27 03:53] LABS: Hematocrit 32.9 % (33.0-51.0); Hemoglobin 10.7 g/dL (11.5-16.0); Mean Corpuscular HGB 30.2 pg (26.0-34.0); Mean Corpuscular HGB Conc 32.5 g/dL (31.5-36.5); Mean Corpuscular Volume 93 fL (80-100); Mean Platelet Volume 10.2 fL (9.1-12.4); Platelet Count 316 K/mm3 (150-400); RDW Coefficient Variation 14.3 % (11.7-14.2); RDW Standard Deviation 48.6 fL (35.1-46.3); Red Blood Cell Count 3.54 M/mm3 (3.80-5.20); White Blood Cell Count 21.14 K/mm3 (4.00-11.30)
[2023-04-27 04:00] VITALS: BP 92/67
[2023-04-27 04:36] LABS: Albumin, Blood 2.8 g/dL (3.4-5.0); Albumin/Globulin Ratio 0.7 (0.8-1.8); Bilirubin, Total 0.3 mg/dL (0.1-1.0); Bun/Creatinine Ratio 33.1 (12.0-20.0); Calcium, Blood 8.7 mg/dL (8.5-10.1); Creatinine, Blood 1.51 mg/dL (0.40-1.00); Globulin, Blood 3.8 g/dL (2.2-4.0); Potassium, Blood 5.1 mmol/L (3.5-5.5); Total Protein, Blood 6.6 g/dL (6.4-8.2)
[2023-04-27 05:29] LABS: BAND PERCENT MAN 2 % (0-8); BASOPHILS PERCENT MAN 0 % (0-2); EOSINOPHILS PERCENT MAN 0 % (0-6); LYMPHOCYTES % ATYPICAL MANUAL 2 % (0-0); LYMPHOCYTES ABSOLUTE MAN 1.26 K/mm3 (0.84-5.20); LYMPHOCYTES PERCENT MAN 4 % (21-46); MONOCYTES PERCENT MAN 0 % (4-13); NEUTROPHILS ABSOLUTE MAN 19.87 K/mm3 (1.96-9.15); SEG NEUTROPHILS PERCENT MAN 92 % (41-73); TOTAL CELLS COUNTED 100
--- NOTE | 2023-04-27 05:46 | NUR ---
SHIFT SUMMARY PT A&O X4. PT SLEPT WELL, REPORTS FEELING "TIRED". VS; SBP 90 - 92, MAP < 65, SINUS TACH W/HR IN 100'S - 115. OF NOTE PT DID HAVE HR INCREASE TO 150 BUT DID NOT SUSTAIN, PT ALSO HAD 6 BEAT RUN OF VTACH PER GRINDER SET UP OPERATOR. PT DENIES SX. PT AFEBRILE DURING SHIFT. SPO2 92 - 96% ON RA. PT DENIES CP OR PRESSURE. DENIES SOB. PT DENIES DIZZINESS OR LIGHTHEADNESS. PT DOES REPORT PAIN IN FACE/JAW D/T INFECTION. PT MEDICATED PER EMAR X1. PW IN PLACE; 500 MLS OUT THIS SHIFT. COLOSTOMY W/LITTLE OUTPUT, GAS NOTED, PT MANAGES INDEPENDENTLY. PT REPOSITIONED Q2 OR PRN. WILL UPDATE ONCOMING RN.
[2023-04-27 07:28] VITALS: BP 96/64
[2023-04-27 15:54] VITALS: BP 91/67
--- NOTE | 2023-04-27 18:32 | NUR ---
ASSUMED CARE AT 1700 REPORT RECEIVED FROM CROW REED. NO ACUTE CHANGE/EVENTS SINCE TRANSFER OF CARE. WILL REPORT TO ONCOMING SHIFT
[2023-04-27 20:04] VITALS: BP 94/67
[2023-04-28 04:03] VITALS: BP 107/71
[2023-04-28 04:09] LABS: BASOPHILS ABSOLUTE AUTO 0.03 K/mm3 (0.00-0.23); BASOPHILS PERCENT AUTO 0 % (0-2); EOSINOPHILS PERCENT AUTO 0 % (0-6); Hematocrit 34.4 % (33.0-51.0); Hemoglobin 11.5 g/dL (11.5-16.0); IMMATURE GRAN ABSOLUTE AUTO 0.24 K/mm3 (0.00-0.10); IMMATURE GRAN PERCENT AUTO 1 % (0-1); LYMPHOCYTES ABSOLUTE AUTO 0.56 K/mm3 (0.84-5.20); LYMPHOCYTES PERCENT AUTO 3 % (21-46); MONOCYTES ABSOLUTE AUTO 0.44 K/mm3 (0.16-1.47); MONOCYTES PERCENT AUTO 2 % (4-13); Mean Corpuscular HGB Conc 33.4 g/dL (31.5-36.5); Mean Corpuscular Volume 90 fL (80-100); Mean Platelet Volume 10.6 fL (9.1-12.4); NEUTROPHILS ABSOLUTE AUTO 20.29 K/mm3 (1.96-9.15); NEUTROPHILS PERCENT AUTO 94 % (41-73); Platelet Count 214 K/mm3 (150-400); RDW Coefficient Variation 14.3 % (11.7-14.2); RDW Standard Deviation 46.5 fL (35.1-46.3); Red Blood Cell Count 3.83 M/mm3 (3.80-5.20); White Blood Cell Count 21.56 K/mm3 (4.00-11.30)
[2023-04-28 06:02] LABS: Albumin, Blood 2.8 g/dL (3.4-5.0); Albumin/Globulin Ratio 0.7 (0.8-1.8); Bilirubin, Total 0.3 mg/dL (0.1-1.0); Bun/Creatinine Ratio 39.3 (12.0-20.0); Calcium, Blood 8.5 mg/dL (8.5-10.1); Creatinine, Blood 1.45 mg/dL (0.40-1.00); Globulin, Blood 3.9 g/dL (2.2-4.0); Potassium, Blood 4.6 mmol/L (3.5-5.5); Total Protein, Blood 6.7 g/dL (6.4-8.2)
--- NOTE | 2023-04-28 07:21 | NUR ---
SHIFT SUMMARY PT REMAINS A&O X4. VSS; SBP STILL SOFT 90 - 107. PT C/O GENERAL PAIN AND PAIN IN NECK/JAW. MEDICATION PER EMAR W/RELIEF. PT PAROTID SEEMS LESS SWOLLEN THAN PREVIOUS. PT STILL REPORTS DRAINAGE. MINIMAL SOB NOTED WITH EXERTION AND DURING CONVERSATION. PW IN PLACE TO SUCTION W/GOOD OUTPUT. COLOSTOMY IN PLACE, UNFORMED, YELLOW/BROWN OUTPUT. PT SELF-MANAGES W/MINIMAL ASSISTANCE MORE SO FOR REMINDERS TO DRAIN. PT REPOSITIONED Q2 OR PRN. NO ACUTE CHANGES. WILL UPDATE ONCOMING RN.
[2023-04-28 08:00] VITALS: BP 111/72
[2023-04-28 16:00] VITALS: BP 111/69
[2023-04-28 16:12] VITALS: BP 117/91
--- NOTE | 2023-04-28 19:06 | NUR ---
PT SUMMARY: NO ACUTE CHANGE FOR THE SHIFT. REMAINS ON ABO FOR ACUTE PAROTITIS, PT C/O PAIN ALL OVER AND ON COCCYX, MEDICATED WITH TYLENOL WITH EFFECTIVENESS. PT HAS BEEN REFUSING TO GET REPOSITIONED AND CHANGED PT WAS EDUCATED ABOUT IMPORTANCE D/T PT'S COCCYX PRESSURE SORE PT FINALLY AGREED THIS AFTERNOON TO GET DRESSING CHANGED, EGG CRATE WAS PLACED AND PT FLOATED IN PILLOWS, HEEL PROTECTORS IN PLACE WELL HEELS ARE RED BUT BLANCHABLE. PT WAS OFFERED MANY TIME TO SIT ON THE SIDE OF THE BED OR GET UP IN THE RECLINER FOR MEALS KEEPS REFUSING VITALS HAS BEEN STABLE. PUREWICK REMAINED IN PLACE FOR INCONTINENCE AND SACRAL WOUND. REMAINS ON PUREE DIET TOERATING WELL, DIET SWITCHED TO PUREE ADA D/T CONSISTENT ELEVATED CBG, SLIDING SCALE PLUS BASAL DOSE INSULIN COVERAGE GIVEN. DAUGHTER AND SIGNIFICANT OTHER CAME BY TO VISIT WAS GIVEN UPDATE REGARDING PT'S STATUS. PT IN BED RESTING AT THIS TIME CALL LIGHTS IN REACH WILL REPORT TO ONCOMING SHIFT
[2023-04-28 20:36] VITALS: BP 96/66
[2023-04-29 04:16] LABS: Alanine Aminotransfer (ALT/SGP 43 U/L (12-78); Albumin, Blood 2.8 g/dL (3.4-5.0); Albumin/Globulin Ratio 0.7 (0.8-1.8); Alk Phos 276 U/L (50-136); Anion Gap 9 mmol/L (6-16); Aspartate Aminotrans (AST/SGOT 23 U/L (12-37); Bilirubin, Total 0.2 mg/dL (0.1-1.0); Blood Urea Nitrogen 55 mg/dL (8-24); Bun/Creatinine Ratio 43.7 (12.0-20.0); CO2, Blood 17 mmol/L (21-32); Calcium, Blood 8.5 mg/dL (8.5-10.1); Chloride, Blood 108 mmol/L (98-108); Creatinine, Blood 1.26 mg/dL (0.40-1.00); Globulin, Blood 3.9 g/dL (2.2-4.0); Glomerular Filtration Rate 44 (60-); Glucose, Blood 329 mg/dL (70-99); Potassium, Blood 4.8 mmol/L (3.5-5.5); Sodium, Blood 134 mmol/L (136-145); Total Protein, Blood 6.7 g/dL (6.4-8.2); Vancomycin, Random 18.2 ug/mL
[2023-04-29 04:20] VITALS: BP 106/83
--- NOTE | 2023-04-29 05:59 | NUR ---
SHIFT SUMMARY NO ACUTE CHANGES NOTED, PT REMAINS A&OX4, VSS, SPO2 >93% ON RA, PAIN MANAGED PER EMAR, PT CONTINUES TO REFUSE ASSISTANCE W/POSITIONING, PT EDU ABOUT PRESSURE SORE HEALING/PREVENTION, SHE IS NOT RECEPTIVE, PURWICK IN PLACE, MARY URINE NOTED IN SUCTION CANISTER, LINEN CHANGED THIS AM DUE TO OSTOMY COMING APART, NEW OSTOMY POUCH PLACED, WCTM & REPORT OT DAY RN, CALL LIGHT LIGHT IN REACH.
--- NOTE | 2023-04-29 07:00 | NUR ---
ASSUME CARE: I have assumed care of this patient.
[2023-04-29 08:00] VITALS: BP 103/85
[2023-04-29 14:39] VITALS: BP 102/75
--- NOTE | 2023-04-29 18:29 | NUR ---
SHIFT SUMMARY: Pt stuggled with nausea and one episode emesis early in the day for which she received IV zofran. Once nausea improved pt was able to tolerate PO. Blood cultures redrawn today. Pt changed ostomy once, but required another change with bedbath after ostomy site leaked. No complaints of pain or SOB. Daughter updated on status via telephone.
[2023-04-29 20:00] VITALS: BP 103/86
[2023-04-30 03:42] LABS: BASOPHILS ABSOLUTE AUTO 0.02 K/mm3 (0.00-0.23); BASOPHILS PERCENT AUTO 0 % (0-2); EOSINOPHILS PERCENT AUTO 0 % (0-6); Hematocrit 35.7 % (33.0-51.0); Hemoglobin 12.1 g/dL (11.5-16.0); IMMATURE GRAN ABSOLUTE AUTO 0.16 K/mm3 (0.00-0.10); IMMATURE GRAN PERCENT AUTO 1 % (0-1); LYMPHOCYTES ABSOLUTE AUTO 0.43 K/mm3 (0.84-5.20); LYMPHOCYTES PERCENT AUTO 2 % (21-46); MONOCYTES ABSOLUTE AUTO 0.55 K/mm3 (0.16-1.47); MONOCYTES PERCENT AUTO 3 % (4-13); Mean Corpuscular HGB 30.1 pg (26.0-34.0); Mean Corpuscular HGB Conc 33.9 g/dL (31.5-36.5); Mean Corpuscular Volume 89 fL (80-100); Mean Platelet Volume 10.7 fL (9.1-12.4); NEUTROPHILS ABSOLUTE AUTO 18.72 K/mm3 (1.96-9.15); NEUTROPHILS PERCENT AUTO 94 % (41-73); NRBC ABSOLUTE 0.04 K/mm3 (0.00-0.02); NRBC Auto 0.2 /100 WBC (0.0-0.2); Platelet Count 311 K/mm3 (150-400); RDW Coefficient Variation 14.1 % (11.7-14.2); RDW Standard Deviation 45.2 fL (35.1-46.3); Red Blood Cell Count 4.02 M/mm3 (3.80-5.20); White Blood Cell Count 19.88 K/mm3 (4.00-11.30)
[2023-04-30 03:56] LABS: Alanine Aminotransfer (ALT/SGP 28 U/L (12-78); Albumin, Blood 2.5 g/dL (3.4-5.0); Albumin/Globulin Ratio 0.8 (0.8-1.8); Alk Phos 226 U/L (50-136); Anion Gap 10 mmol/L (6-16); Aspartate Aminotrans (AST/SGOT 14 U/L (12-37); Bilirubin, Total 0.3 mg/dL (0.1-1.0); Blood Urea Nitrogen 48 mg/dL (8-24); Bun/Creatinine Ratio 43.2 (12.0-20.0); CO2, Blood 17 mmol/L (21-32); Chloride, Blood 112 mmol/L (98-108); Creatinine, Blood 1.11 mg/dL (0.40-1.00); Globulin, Blood 3.3 g/dL (2.2-4.0); Glomerular Filtration Rate 51 (60-); Glucose, Blood 203 mg/dL (70-99); Potassium, Blood 4.9 mmol/L (3.5-5.5); Sodium, Blood 139 mmol/L (136-145); Total Protein, Blood 5.8 g/dL (6.4-8.2); Vancomycin, Random 21.3 ug/mL
[2023-04-30 04:15] VITALS: BP 91/80
--- NOTE | 2023-04-30 06:24 | NUR ---
SHIFT SUMMARY PT REMAINS A&O X4. VSS. NO ACUTE EVENTS OVERNIGHT. PT STILL C/O OF PAIN 7-8/10 IN COCCYX, BACK, AND MOUTH. ALTHOUGH REPORTS HER MOUTH/JAW IS FEELING "MUCH BETTER". PW IN PLACE T/O SHIFT. OSTOMY INTACT; 250 MLS OUT. WILL UPDATE ONCOMING RN.
[2023-04-30 12:41] VITALS: BP 99/68
[2023-04-30 16:18] VITALS: BP 94/76
--- NOTE | 2023-04-30 18:21 | NUR ---
END OF SHIFT PT MEDICAL NO TELEMETRY STATUS. A&O X4. PT INTERMITTENTLY IRRITABLE VS PLEASANT & COOPERATIVE. PT REFUSING REPOSITIONING, BUT STAFF ENCOURAGING / EDUCATING NEED FOR PREVENTION OF FURTHER SKIN BREAK DOWN TO ALREADY PRESENT PRESSURE INJURY TO PT COCCYX. PT MEDICATED FOR PAIN PER EMAR/PT REQUEST X1 THIS SHIFT W/ IMPROVEMENT. PT VSS. SPO2 > 92% ON RA. NO EVENTS THIS SHIFT.
[2023-04-30 19:26] VITALS: BP 115/83
[2023-05-01 04:20] VITALS: BP 116/84
[2023-05-01 05:03] LABS: BASOPHILS ABSOLUTE AUTO 0.03 K/mm3 (0.00-0.23); BASOPHILS PERCENT AUTO 0 % (0-2); EOSINOPHILS PERCENT AUTO 0 % (0-6); Hematocrit 38.1 % (33.0-51.0); Hemoglobin 12.5 g/dL (11.5-16.0); IMMATURE GRAN ABSOLUTE AUTO 0.16 K/mm3 (0.00-0.10); IMMATURE GRAN PERCENT AUTO 1 % (0-1); LYMPHOCYTES ABSOLUTE AUTO 0.62 K/mm3 (0.84-5.20); LYMPHOCYTES PERCENT AUTO 3 % (21-46); MONOCYTES ABSOLUTE AUTO 0.99 K/mm3 (0.16-1.47); MONOCYTES PERCENT AUTO 5 % (4-13); Mean Corpuscular HGB Conc 32.8 g/dL (31.5-36.5); Mean Corpuscular Volume 92 fL (80-100); Mean Platelet Volume 10.6 fL (9.1-12.4); NEUTROPHILS ABSOLUTE AUTO 18.63 K/mm3 (1.96-9.15); NEUTROPHILS PERCENT AUTO 91 % (41-73); NRBC ABSOLUTE 0.06 K/mm3 (0.00-0.02); NRBC Auto 0.3 /100 WBC (0.0-0.2); Platelet Count 377 K/mm3 (150-400); RDW Coefficient Variation 14.4 % (11.7-14.2); RDW Standard Deviation 47.8 fL (35.1-46.3); Red Blood Cell Count 4.16 M/mm3 (3.80-5.20); White Blood Cell Count 20.43 K/mm3 (4.00-11.30)
[2023-05-01 05:35] LABS: Alanine Aminotransfer (ALT/SGP 30 U/L (12-78); Albumin, Blood 2.6 g/dL (3.4-5.0); Albumin/Globulin Ratio 0.7 (0.8-1.8); Alk Phos 212 U/L (50-136); Anion Gap 9 mmol/L (6-16); Aspartate Aminotrans (AST/SGOT 14 U/L (12-37); Bilirubin, Total 0.2 mg/dL (0.1-1.0); Blood Urea Nitrogen 49 mg/dL (8-24); Bun/Creatinine Ratio 43.8 (12.0-20.0); CO2, Blood 19 mmol/L (21-32); Calcium, Blood 8.3 mg/dL (8.5-10.1); Chloride, Blood 110 mmol/L (98-108); Creatinine, Blood 1.12 mg/dL (0.40-1.00); Globulin, Blood 3.6 g/dL (2.2-4.0); Glomerular Filtration Rate 51 (60-); Glucose, Blood 241 mg/dL (70-99); Potassium, Blood 4.6 mmol/L (3.5-5.5); Sodium, Blood 138 mmol/L (136-145); Total Protein, Blood 6.2 g/dL (6.4-8.2); Vancomycin, Random 15.5 ug/mL
[2023-05-01 11:51] VITALS: BP 96/78
[2023-05-01 15:00] VITALS: BP 107/66
--- NOTE | 2023-05-01 19:31 | NUR ---
END OF SHIFT PT A&O X4. VSS. SPO2 > 92% ON RA. PT MEDICAL NO TELEMETRY STATUS. VSS. WHITE SPOTS NOTED T/O PT MOUTH. MEDICATION PROVIDED PER EMAR. PT LACKING IN MOTIVATION TO MOVE. COCCYX PRESSURE ULCER W/ MEPILEX DRESSING IN PLACE. PT ENCOURAGED TO ALLOW STAFF TO REPOSITION. PT INCONTINENT, PUREQICK & ATTENDS IN PLACE. NO EVENTS THIS SHIFT.
[2023-05-01 20:59] VITALS: BP 100/71
[2023-05-02 04:00] VITALS: BP 95/76
[2023-05-02 04:10] LABS: BASOPHILS ABSOLUTE AUTO 0.03 K/mm3 (0.00-0.23); BASOPHILS PERCENT AUTO 0 % (0-2); EOSINOPHILS ABSOLUTE AUTO 0.02 K/mm3 (0.00-0.68); EOSINOPHILS PERCENT AUTO 0 % (0-6); Hematocrit 38.1 % (33.0-51.0); Hemoglobin 12.4 g/dL (11.5-16.0); IMMATURE GRAN PERCENT AUTO 1 % (0-1); LYMPHOCYTES ABSOLUTE AUTO 1.12 K/mm3 (0.84-5.20); LYMPHOCYTES PERCENT AUTO 6 % (21-46); MONOCYTES ABSOLUTE AUTO 1.17 K/mm3 (0.16-1.47); MONOCYTES PERCENT AUTO 6 % (4-13); Mean Corpuscular HGB 30.1 pg (26.0-34.0); Mean Corpuscular HGB Conc 32.5 g/dL (31.5-36.5); Mean Corpuscular Volume 93 fL (80-100); Mean Platelet Volume 10.2 fL (9.1-12.4); NEUTROPHILS ABSOLUTE AUTO 16.95 K/mm3 (1.96-9.15); NEUTROPHILS PERCENT AUTO 87 % (41-73); NRBC ABSOLUTE 0.08 K/mm3 (0.00-0.02); NRBC Auto 0.4 /100 WBC (0.0-0.2); Platelet Count 351 K/mm3 (150-400); RDW Coefficient Variation 14.6 % (11.7-14.2); RDW Standard Deviation 48.1 fL (35.1-46.3); Red Blood Cell Count 4.12 M/mm3 (3.80-5.20); White Blood Cell Count 19.49 K/mm3 (4.00-11.30)
[2023-05-02 04:41] LABS: Alanine Aminotransfer (ALT/SGP 20 U/L (12-78); Albumin, Blood 2.5 g/dL (3.4-5.0); Albumin/Globulin Ratio 0.8 (0.8-1.8); Alk Phos 192 U/L (50-136); Anion Gap 4 mmol/L (6-16); Aspartate Aminotrans (AST/SGOT 13 U/L (12-37); Bilirubin, Total 0.2 mg/dL (0.1-1.0); Blood Urea Nitrogen 48 mg/dL (8-24); Bun/Creatinine Ratio 45.7 (12.0-20.0); CO2, Blood 24 mmol/L (21-32); Chloride, Blood 112 mmol/L (98-108); Creatinine, Blood 1.05 mg/dL (0.40-1.00); Globulin, Blood 3.3 g/dL (2.2-4.0); Glomerular Filtration Rate 55 (60-); Glucose, Blood 168 mg/dL (70-99); Potassium, Blood 4.3 mmol/L (3.5-5.5); Sodium, Blood 140 mmol/L (136-145); Total Protein, Blood 5.8 g/dL (6.4-8.2); Vancomycin, Random 19.2 ug/mL
--- NOTE | 2023-05-02 06:00 | NUR ---
SHIFT SUMMARY NO ACUTE CHANGES. SLEPT INTERMITTENTLY. ROUSES EASILY. REPOSITIONED Q 2-3H. MEDICATED WITH PAIN MED X 1 FOR C/O "BOTTOM" PAIN. PT STATES THE PAIN MEDS HELP "JUST A LITTLE." OCCASIONALLY TEARFUL. C/O FEELING OVERWHELMED. TOELRATING DIET AND THICKENED LIQUIDS. TUMS GIVEN X 1 FOR C/O HEARTBURN. WHITE SPOTS NOTED IN MOUTH. VSS. RA SATS STABLE. PUREWICK IN PLACE- YELLOW URINE. COLOSTOMY NOTED. ALCON IV STARTED LEAKING THIS AM. MULTIPLE ATTEMPTS TO RESTART IV WERE UNSUCCESSFUL- WILL DISCUSS WITH MD REGARDING POSSIBILITY OF CHANGING TO PO ANTIBIOTICS. BUTTOCKS WOUND WITH MEPILEX IN PLACE.
[2023-05-02 10:57] LABS: SARS-Cov-2 (COVID-19) PCR, MMC NEGATIVE (NEGATIVE)
[2023-05-02 11:21] VITALS: BP 94/64
[2023-05-02] MEDS ORDERED: CITALOPRAM HBR10 MG PO (12:31)
[2023-05-02] MEDS ORDERED: ACET325 PO (12:32)
[2023-05-02] MEDS ORDERED: TUMS500 MG PO (12:33)
[2023-05-02] MEDS ORDERED: JUVEN PACKET1 EAC3 PO (12:33)
[2023-05-02] MEDS ORDERED: CEFTRIAXONE2 G1 IV (12:34)
[2023-05-02] MEDS ORDERED: Prednisone10 MG PO (12:36)
[2023-05-02] MEDS ORDERED: TRAM50 PO (12:37)
[2023-05-02] MEDS ORDERED: VISBIOME 112.51 EACH PO (12:39)
[2023-05-02] MEDS ORDERED: MISCSOL MT (12:45)
--- NOTE | 2023-05-02 17:01 | NUR ---
DISCHARGE SNF PT A&O X4. VSS. DISCHARGED TO [facility] @ APPROX 1300. PT TAKEN BY KEVIN Aguillon/ KEIRA. PT DAUGHTER UPDATED. POWER GLIDE REMAINS IN PLACE FOR IV ABX AT FACILITY.
== END 2023-05-02 13:04 | DRG 872 ==
LOC: ER 09:19 → PCU 13:25
PROVIDERS: Family Medicine; Hospitalist; Pharmacist; Student in an Organized Health Care Education/Training Program; ADMIT Internal Medicine
DX: A41.02 Sepsis due to Methicillin resistant Staphylococcus aureus (principal); E87.20 Acidosis, unspecified; N17.9 Acute kidney failure, unspecified; I50.42 Chronic combined systolic (congestive) and diastolic (congestive) heart failure; N39.0 Urinary tract infection, site not specified; I47.1 Supraventricular tachycardia; K11.21 Acute sialoadenitis; R65.20 Severe sepsis without septic shock; Z20.822 Contact with and (suspected) exposure to COVID-19; I11.0 Hypertensive heart disease with heart failure; D64.9 Anemia, unspecified; F99 Mental disorder, not otherwise specified; I35.0 Nonrheumatic aortic (valve) stenosis; E11.9 Type 2 diabetes mellitus without complications; I95.9 Hypotension, unspecified; E66.9 Obesity, unspecified; Z88.5 Allergy status to narcotic agent; Z88.0 Allergy status to penicillin; Z91.041 Radiographic dye allergy status; Z79.01 Long term (current) use of anticoagulants; Z79.4 Long term (current) use of insulin; Z79.899 Other long term (current) drug therapy; Z79.2 Long term (current) use of antibiotics; Z87.891 Personal history of nicotine dependence; Z86.711 Personal history of pulmonary embolism; Z86.718 Personal history of other venous thrombosis and embolism; Z90.89 Acquired absence of other organs; Z90.49 Acquired absence of other specified parts of digestive tract; Z90.710 Acquired absence of both cervix and uterus; Z85.038 Personal history of other malignant neoplasm of large intestine; Z85.048 Personal history of other malignant neoplasm of rectum, rectosigmoid junction, and anus; Z98.84 Bariatric surgery status; Z89.431 Acquired absence of right foot; Z68.30 Body mass index [BMI] 30.0-30.9, adult; Z93.3 Colostomy status; Z92.21 Personal history of antineoplastic chemotherapy; Z92.3 Personal history of irradiation
CPT/HCPCS: 36415; 70491; 80048; 80053; 80202; 81001; 82803; 82947; 83605; 85025; 87040; 87070; 87077; 87081; 87086; 87106; 87147; 87186; 87205; 92526; 92610; 96361; 96365-59; 96375-59; 96376-59; 97110; 97161; 97530; 99284-25; A9270; J0696; J1100; J1200; J1650; J1815; J2270; J2405; J3010; J3370; J7030; J7050; J7512; Q9967; U0002

== ENCOUNTER 2023-05-11 13:17 | Observation (INO) | payer OTHER ==
[~2023-05-11] VITALS: Ht 167.6 cm; Wt 78.9 kg
[~2023-05-11 13:17] MED LIST changes: +ACET325 PO; +CEFTRIAXONE2 G1 IV; +CITALOPRAM HBR10 MG PO; +JUVEN PACKET1 EAC3 PO; +MISCSOL MT; +Prednisone10 MG PO; +TRAM50 PO; +TUMS500 MG PO; +VISBIOME 112.51 EACH PO
[2023-05-11 14:22] LABS: Albumin, Blood 2.7 g/dL (3.4-5.0); Albumin/Globulin Ratio 0.7 (0.8-1.8); Bilirubin, Total 0.7 mg/dL (0.1-1.0); Bun/Creatinine Ratio 29.3 (12.0-20.0); Calcium, Blood 8.7 mg/dL (8.5-10.1); Creatinine, Blood 0.82 mg/dL (0.40-1.00); Globulin, Blood 3.7 g/dL (2.2-4.0); Potassium, Blood 4.8 mmol/L (3.5-5.5); Total Protein, Blood 6.4 g/dL (6.4-8.2)
[2023-05-11 15:24] LABS: BASOPHILS ABSOLUTE AUTO 0.02 K/mm3 (0.00-0.23); BASOPHILS PERCENT AUTO 0 % (0-2); EOSINOPHILS ABSOLUTE AUTO 0.03 K/mm3 (0.00-0.68); EOSINOPHILS PERCENT AUTO 0 % (0-6); Hematocrit 37.2 % (33.0-51.0); Hemoglobin 11.8 g/dL (11.5-16.0); IMMATURE GRAN ABSOLUTE AUTO 0.05 K/mm3 (0.00-0.10); IMMATURE GRAN PERCENT AUTO 0 % (0-1); LYMPHOCYTES ABSOLUTE AUTO 0.65 K/mm3 (0.84-5.20); LYMPHOCYTES PERCENT AUTO 6 % (21-46); MONOCYTES ABSOLUTE AUTO 0.45 K/mm3 (0.16-1.47); MONOCYTES PERCENT AUTO 4 % (4-13); Mean Corpuscular HGB 30.1 pg (26.0-34.0); Mean Corpuscular HGB Conc 31.7 g/dL (31.5-36.5); Mean Corpuscular Volume 95 fL (80-100); Mean Platelet Volume 9.5 fL (9.1-12.4); NEUTROPHILS ABSOLUTE AUTO 10.56 K/mm3 (1.96-9.15); NEUTROPHILS PERCENT AUTO 90 % (41-73); Platelet Count 251 K/mm3 (150-400); RDW Coefficient Variation 16.1 % (11.7-14.2); Red Blood Cell Count 3.92 M/mm3 (3.80-5.20); White Blood Cell Count 11.76 K/mm3 (4.00-11.30)
[2023-05-11 21:57] VITALS: BP 97/59
[2023-05-12 04:14] VITALS: BP 98/62
[2023-05-12 04:50] LABS: BASOPHILS ABSOLUTE AUTO 0.03 K/mm3 (0.00-0.23); BASOPHILS PERCENT AUTO 0 % (0-2); EOSINOPHILS ABSOLUTE AUTO 0.06 K/mm3 (0.00-0.68); EOSINOPHILS PERCENT AUTO 1 % (0-6); Hematocrit 32.1 % (33.0-51.0); Hemoglobin 10.2 g/dL (11.5-16.0); IMMATURE GRAN ABSOLUTE AUTO 0.02 K/mm3 (0.00-0.10); IMMATURE GRAN PERCENT AUTO 0 % (0-1); LYMPHOCYTES ABSOLUTE AUTO 0.69 K/mm3 (0.84-5.20); LYMPHOCYTES PERCENT AUTO 8 % (21-46); MONOCYTES PERCENT AUTO 5 % (4-13); Mean Corpuscular HGB 30.1 pg (26.0-34.0); Mean Corpuscular HGB Conc 31.8 g/dL (31.5-36.5); Mean Corpuscular Volume 95 fL (80-100); Mean Platelet Volume 9.8 fL (9.1-12.4); NEUTROPHILS PERCENT AUTO 86 % (41-73); Platelet Count 222 K/mm3 (150-400); RDW Coefficient Variation 16.5 % (11.7-14.2); RDW Standard Deviation 54.2 fL (35.1-46.3); Red Blood Cell Count 3.39 M/mm3 (3.80-5.20)
[2023-05-12 05:10] LABS: Albumin, Blood 2.2 g/dL (3.4-5.0); Albumin/Globulin Ratio 0.7 (0.8-1.8); Bilirubin, Total 0.5 mg/dL (0.1-1.0); Bun/Creatinine Ratio 27.2 (12.0-20.0); Calcium, Blood 8.2 mg/dL (8.5-10.1); Creatinine, Blood 0.85 mg/dL (0.40-1.00); Magnesium, Blood 1.7 mg/dL (1.6-2.4); Potassium, Blood 4.3 mmol/L (3.5-5.5); Total Protein, Blood 5.2 g/dL (6.4-8.2)
--- NOTE | 2023-05-12 06:15 | NUR ---
WIND TURBINE DESIGN ENGINEER SUMMARY: PT ARRIVED TO UNIT AT 2150 FROM ED. COLOSTOMY PATENT AND DRAINING BROWN, NON-FORMED STOOL; SHE DECLINED HS DOSE OF DSS. DIABETIC; DID NOT MERIT SS INSULIN UPON ADMIT TO FLOOR. 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 LABS DRAWN THIS AM; NO CRITICAL VALUES REPORTED AT THIS TIME. 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 ED NURSE REPORTED PATIENT WILL NOT CALL WHEN WET ATTENDS STATING, "THEY SHOULD BE CHECKING". NEEDS TO BE CUED TO EMPTY COLOSTOMY BAG; REPORTEDLY DID NOT INITATE EMPTYING OF BAG. REPORT TO ONCOMING RN.
[2023-05-12 07:45] VITALS: BP 105/60
[2023-05-12 15:20] VITALS: BP 103/79
--- NOTE | 2023-05-12 18:34 | NUR ---
SUMMARY- NO ACUTE EVENTS THIS SHIFT. PT DECLINED GETTING INTO THE RECLINER FOR DINNER VIA LIFT. PT'S PAIN WELL CONTROLLED W/TYLENOL THIS SHIFT. PT SLEPT MOST OF THE SHIFT. AAOX4-OCASSIONALLY FORGETFUL.
[2023-05-12 20:12] VITALS: BP 117/82
[2023-05-13 05:06] VITALS: BP 108/76
--- NOTE | 2023-05-13 06:46 | NUR ---
SUMMARY: PT A/OX4, SPECIFIES NEEDS AND IS PLEASANT AND COOPERATIVE W/CARE. SHE'S WEAK W/TURN SCHEDULE MAINTAINED AND LIFT REQ'D OOB. PUREWIC CATH WAS PLACED FOR MOISTURE PREVENTION AND CHRONIC WOUND HEALING. PT HAS COMPLEX SORE W/SURROUNDING EXCORIATION TO COCCYX, X2 MEPILEXES REMAIN C/D/I. EDEMA PERSISTS TO BLE'S AND HEALS FLOATED IN BED. PT SELF CARES FOR COLOSTOMY AT BASELINE BUT STAFF ASSISTED TO EMPTY BROWN UNFORMED STOOL. HS DSS HELD PER PT REQUEST. NO ACUTE CHANGES, VSS/AFEBRILE. WCTM AND REPORT TO DAY RN.
[2023-05-13 07:22] VITALS: BP 121/75
[2023-05-13 15:43] VITALS: BP 99/69
[2023-05-13 16:16] LABS: SARS-Cov-2 (COVID-19) PCR, MMC NEGATIVE (NEGATIVE)
[2023-05-13] MEDS ORDERED: THERA-D2000 UNIT PO (16:25)
--- NOTE | 2023-05-13 18:20 | NUR ---
DC- PT LEFT VIA AMBULANCE TO [facility] IN STABLE CONDITION W/ALL BELONINGS AT 1730. REPORT GIVEN TO DEREK YIP.
== END 2023-05-13 17:31 ==
LOC: ER 13:17 → MEDS 20:10 → ER 20:10 → MEDS 20:11
PROVIDERS: Emergency Medicine; Internal Medicine; ADMIT Student in an Organized Health Care Education/Training Program
DX: R53.1 Weakness (principal); E11.9 Type 2 diabetes mellitus without complications; L89.159 Pressure ulcer of sacral region, unspecified stage; I50.42 Chronic combined systolic (congestive) and diastolic (congestive) heart failure; I35.0 Nonrheumatic aortic (valve) stenosis; Z93.3 Colostomy status; Z86.718 Personal history of other venous thrombosis and embolism; Z79.01 Long term (current) use of anticoagulants; Z79.4 Long term (current) use of insulin; Z79.84 Long term (current) use of oral hypoglycemic drugs; I11.0 Hypertensive heart disease with heart failure; E66.9 Obesity, unspecified; Z68.30 Body mass index [BMI] 30.0-30.9, adult; Z87.891 Personal history of nicotine dependence; Z88.0 Allergy status to penicillin; Z88.5 Allergy status to narcotic agent; Z91.041 Radiographic dye allergy status; Z20.822 Contact with and (suspected) exposure to COVID-19
CPT/HCPCS: 36415; 72158; 80053; 82947; 83735; 85025; 93005; 93010; 97110; 97162; 97530; 99285-25; A9270; A9579; G0378; J2270; U0002